=== PATIENT | male | born 1960 | race Caucasian/White ===

== ENCOUNTER 2016-12-13 18:56 | Emergency (ER) | payer OTHER ==
[~2016-12-13] VITALS: Ht 188 cm; Wt 95.3 kg
[~2016-12-13 18:56] MED LIST: ASPIRIN81 M1 PO; B12 1MG PE1000 MCG/M; BACTRIM DS 8001 TAB PO; BACTRIM DS TAB1 EACH PO; DILAUDID2 M1 PO; DRISDOL50000 UNIT PO; IRON SUPPLEMEN325 MG PO; METOPROLOL TART50 M1 PO; METOPROLOL TART50 MG PO; MULTI VITAMINS1 TAB PO; PERCOCET 325 MG1 TA2 PO; PRILOSEC20 M1 PO; TRAMADOL HCL50 M1 PO; TRAMADOL50 MG PO; VITAMIN C500 M8 PO; VITAMIN D1000 IU PO; ZOCOR 40MG TAB40 MG PO; ZOLPIDEM TART12.5 M1 PO
[2016-12-13 19:10] VITALS: BP 124/79
--- NOTE | 2016-12-13 19:38 | ED NECK/BACK PAIN COMPLAINT ---
History of Present Illness General Chief Complaint: Neck/Upper Back Pain/Injury Stated Complaint: LEFT SIDED NECK PAIN Source: patient, old records Exam Limitations: no limitations Vital Signs & Intake/Output Vital Signs & Intake/Output Vital Signs Date Time Temp Pulse Resp B/P B/P Pulse O2 O2 Flow FiO2 Mean Ox Delivery Rate 12/13 1909 97.7 56 18 124/79 99 Room Air Allergies Coded Allergies: Penicillins (hives 09/19/15) phenylephrine (UNKNOWN - "DECONGESTANTS" PER PRE-SX INTERVIEW 11/25/15) pseudoephedrine (UNKNOWN 09/19/15) morphine (GI DISTRESS 11/29/15) Reconcile Medications Ascorbic Acid (Vitamin C) 500 MG TABLET 1 TAB PO DAILY SUPPLEMENT (Reported) Aspirin 81 MG CTB 1 TAB PO DAILY HEART HEALTH (Reported) Cyanocobalamin (Cyanocobalamin Injection) 1,000 MCG/ML ML 1 INJ EVERY 2 WEEKS SUPPLEMENT (Reported) Diazepam (Valium) 5 MG TABLET 1 TAB PO Q6P PRN MUSCLE SPASM Ergocalciferol (Vitamin D2) (Drisdol) 50,000 UNIT CAPSULE 1 CAP PO AD SUPPLEMENT (Reported) Ferrous Sulfate (Iron Supplement) 325 MG TABLET 1 TAB PO BID SUPPLEMENT ( Reported) Hydromorphone HCl (Dilaudid) 2 MG TABLET 1-2 TAB PO Q4-6 PRN PRN PAIN Metoprolol Tartrate 50 MG TABLET 1 TAB PO DAILY HEART/BP (Reported) Multivitamin (One Daily Multivitamin) 1 TAB TAB 1 TAB PO DAILY SUPPLEMENT ( Reported) Omeprazole (Prilosec) 20 MG CAPSULE.DR 1 CAP PO DAILY HEARTBURN Oxycodone HCl/Acetaminophen (Percocet 5-325 MG Tablet) 5 MG-325 MG TABLET 1-2 TAB PO Q6P PRN PAIN Simvastatin (Zocor 40MG Tab) 40 MG TAB 1 TAB PO QPM CHOLESTROL (Reported) Sulfamethoxazole/Trimethoprim (Bactrim Ds Tablet) 1 EACH TABLET 1 TAB PO BID INFECTION Tramadol HCl 50 MG TABLET 1 TAB PO PRN PAIN (Reported) Zolpidem Tartrate (Zolpidem Tartrate ER) 12.5 MG TAB.MPHASE 1 TAB PO DAILY SLEEP (Reported) Triage Note: PT TO ED C/O EXACERBATION OF CHRONIC NECK PAIN. TAKES TRAMADOL "IT'S NOT HELPING" DENIES INJURY. HAS BEEN "SHARP ALL DAY WHEN I TURN MY HEAD" LAST TRAMADOL AT 1300 THIS AFTERNOON Triage Nurses Notes Reviewed? yes HPI: Patient states that he has chronic neck pain for the past 4 days there is been an acute exacerbation of his neck pain. The pain is cramping in the left side of his neck. The pain increases when he turns his head. There is no radiation. There is no fevers or chills. No weakness or numbness. The pain is 10 out of 10. Past History Travel History Traveled to [place] past 21 day No Medical History Any Pertinent Medical History? see below for history Cardiovascular: hypertension, hyperlipidemia Gastrointestinal: hiatal hernia, GASTRIC CANCER Musculoskeletal: chronic back pain, ARTHRITIS Cancer(s): gastric cancer History of MRSA: No History of VRE: No History of CDIFF: No Pneumonia Vaccine: 08/22/11 Influenza Vaccine: 04/21/15 Surgical History Surgical History: incisional hernia repairs Psychosocial History Who do you live with Spouse Services at Home None What is your primary language Jordanian Tobacco Use: Quit >30 days ago ETOH Use: occasional use Illicit Drug Use: denies illicit drug use Family History Hx Contributory? No Review of Systems Review of Systems Constitutional: Reports: no symptoms. Eyes: Reports: no symptoms. Respiratory: Reports: no symptoms. Cardiovascular: Reports: no symptoms. Musculoskeletal: Reports: see HPI, muscle pain, neck pain. Neurological/Psychological: Reports: no symptoms. Physical Exam Physical Exam General Appearance: well developed/nourished, alert, awake, mild distress Head: atraumatic, normal appearance Eyes: Bilateral: PERRL, EOMI. Neck: normal inspection, supple, muscle spasm, no midline tenderness Respiratory: normal breath sounds, chest non-tender, no respiratory distress, lungs clear Cardiovascular: regular rate/rhythm, normal peripheral pulses Neurologic/Psych: no motor/sensory deficits, awake, alert, oriented x 3, normal gait, normal mood/affect Progress Differential Diagnosis: myofascial strain Plan of Care: Current Medications Sig/Carlie Start time Last Medication Dose Stop Time Status Admin Ketorolac 60 MG ONCE ONE 12/13 1944 UNVr Tromethamine 12/13 1945 (Toradol) Departure Departure Disposition: HOME OR SELF CARE Condition: Stable Clinical Impression Primary Impression: Muscle spasm Referrals: DELILAH SETH,POPPY Hodges (PCP/Family) Additional Instructions: USE MOIST HEAT FOLLOW UP WITH DR. BRAND RETURN FOR ANY CONCERNS Departure Forms: Customer Survey General Discharge Information Prescriptions: Current Visit Scripts Diazepam (Valium) 1 TAB PO Q6P PRN MUSCLE SPASM #30 TAB Oxycodone HCl/Acetaminophen (Percocet 5-325 MG Tablet) 1-2 TAB PO Q6P PRN PAIN #20 TAB
[2016-12-13] MEDS ORDERED: VALIUM5 M2 PO (19:40)
[2016-12-13] MEDS ORDERED: PERCOCET 5-3251 EACH PO (19:40)
== END 2016-12-13 19:55 ==
LOC: ERH 18:56
DX: M62.838 Other muscle spasm (principal)
CPT/HCPCS: 96372; J1885